=== PATIENT | male | born 1980 | race Caucasian/White ===

== ENCOUNTER 2017-02-20 10:49 | Emergency (ER) | payer OTHER ==
--- NOTE | ~2017-02-20 | ER ---
PATIENT'S NAME: REY OHARA [facility] AGE: 36 Y [address] ROOM: [place] [address] LOCATION: ED ADMIT DATE: 02/20/2017 ER/Outpatient Report DISCHARGE DATE: 02/20/2017 FAMILY PHYSICIAN: , Unknown ATTENDING PHYSICIAN: Krystal Ward Time of Arrival: 1049 hours. Time of Evaluation: 1118 hours. IDENTIFICATION: A 36-year-old male. CHIEF COMPLAINT: Medical clearance. HISTORY OF PRESENT ILLNESS: The patient is a 36-year-old male from [place], [place] who is brought in by law enforcement after suicidal statements made. They found him in his vehicle with a gun across his lap. They had to break the window to get into the vehicle. At that time, he picked up the gun and raised it. They did tase him at that time while he was seated on the left side. He did not fall. He does have some abrasions on his left forearm from the shattered glass from breaking the window. He has no other lesions. He to me when I asked him about suicidal ideation, denies this. He states "I just want to be left alone." PAST MEDICAL HISTORY: ALLERGIES: NO KNOWN DRUG ALLERGIES. CURRENT MEDICATIONS: 1. Hydrocodone/acetaminophen 5/325 one p.o. b.i.d. 2. Morphine ER 15 mg t.i.d. MEDICAL PROBLEMS: Chronic back pain status post decompressive lumbar laminectomy of L2-L3, L4-L5 and S1 with partial medial facetectomy and foraminotomy per Dr. Beebe in September of 2014. The patient had the second injury at work 1 year ago and has pain in his right SI joint. He is undergoing evaluation for that and he has been seeing Dr. Burton, Pain Specialist. PREVIOUS SURGERIES: Hemorrhoid surgery, back surgery as mentioned above and tonsillectomy. PATIENT'S NAME: REY OHARA [facility] AGE: 36 Y [address] ROOM: [place] [address] LOCATION: ED ADMIT DATE: 02/20/2017 ER/Outpatient Report DISCHARGE DATE: 02/20/2017 FAMILY PHYSICIAN: Physician, Unknown ATTENDING PHYSICIAN: Krystal Ward SOCIAL HISTORY: The patient is . Has 3 children. Lives in [place]. 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 Tobacco use, denies. Alcohol use, denies. Drug use, denies. REVIEW OF SYSTEMS: All systems reviewed and negative other than what is noted in the HPI. He states that he probably does have a history of depression. He has been treated with antidepressants in the past, but none recently. The patient's heart rate is little fast. He said that he always has some tachycardia. FAMILY HISTORY: No pertinent family history identified. PHYSICAL EXAMINATION: VITAL SIGNS: Height 6 feet 0 inches, weight 355 pounds. Blood pressure 146/90, pulse 143 initially, respiratory rate 16, temperature 98.8, and saturations 95%. Recheck heart rate came down to 118, sinus tachy. HEENT: Head: Normocephalic, atraumatic. Ears: TMs translucent both ears. Eyes: Pupils equal and reactive to light and accommodation. Extraocular movements intact. Nose: Mucosa pink. No lesions or drainage. Mouth: No lesions. Pharynx benign. NECK: Supple. No lymphadenopathy. LUNGS: Clear to auscultation. HEART: Sinus tachycardia. No murmur, rub, or gallop. ABDOMEN: Protuberant bowel sounds present. Soft, nondistended, nontender. SKIN: [place], warm, and dry. The patient has 2 taser sites on his left lower lateral rib area. EXTREMITIES: Full range of motion. No deformities. Good distal pulses. No significant lower extremity edema. The patient has decreased range of motion of his lumbar spine secondary to pain. This is not new for him. NEUROLOGIC: Neurologically, he is intact. LABORATORY DATA: Sodium 139, potassium 4.0, chloride 107, CO2 23, BUN 12, creatinine 1.1. Blood sugar 100. Liver enzymes normal. Alcohol level less than 0.010. CPK 102, CK-MB 0.7, troponin I less than 0.040. Acetaminophen less than 2. Salicylate less than 2.8. TSH 6.830. Free T4 1.2. UA positive for opiates. Hemoglobin 13.4, hematocrit 39.8, platelets 297, white count 13.5 with 82% lymphocytes. UA negative. IMAGING DATA: EKG sinus tachycardia at 126 beats per minute. No acute ST elevation or PATIENT'S NAME: REY OHARA [facility] AGE: 36 Y [address] ROOM: [place] [address] LOCATION: [facility] ADMIT DATE: 02/20/2017 ER/Outpatient Report DISCHARGE DATE: 02/20/2017 FAMILY PHYSICIAN: Physician, Unknown ATTENDING PHYSICIAN: Krystal Ward depression. No previous EKG available for comparison. IMPRESSION: 1. Depression with suicidal ideation. The patient is under [facility] hold per [facility] for transfer to [facility]. The patient is medically stable and Dr. Wesley will accept care. 2. Sinus tachycardia. 3. Elevated TSH. Free T4 was pending at the time of discharge, but has returned to normal. 4. Chronic back pain on chronic opiate use. The patient was taken by law enforcement in stable condition to [facility]. KRYSTAL WARD MD CAR/modl /[id number] d: 02/21/1732 t: 02/22/172042, OUTPATIENT REPORT
[~2017-02-20 10:49] MED LIST: CIPRO500 MG PO; COLACE100 MG PO; DULCOLAX5 MG PO; FLEXERIL10 MG PO; HYDROCODON-ACE1 EAC4 PO; MIRALAX17 GM PO; MOBIC7.5 MG
[2017-02-20 11:21] LABS: BILIRUBIN URINE NEGATIVE (NEGATIVE); BLOOD URINE NEGATIVE /UL (NEGATIVE); COLOR URINE YELLOW (YELLOW); GLUCOSE URINE NEGATIVE (NEGATIVE); KETONE URINE NEGATIVE (NEGATIVE); LEUKOCYTES URINE NEGATIVE /UL (NEGATIVE); NITRITE URINE NEGATIVE (NEGATIVE); PROTEIN URINE NEGATIVE (NEGATIVE); TURBIDITY URINE CLEAR (CLEAR); UROBILINOGEN URINE NORMAL (NORMAL)
[2017-02-20 11:39] LABS: AMPHETAMINE NEGATIVE (NEGATIVE); BARBITURATE NEGATIVE (NEGATIVE); COCAINE NEGATIVE (NEGATIVE); OPIATES POSITIVE (NEGATIVE)
[2017-02-20 11:43] LABS: BASOPHIL % 0.2 %; EOSINOPHIL % 0.1 %; HEMATOCRIT 39.8 % (37.0-53.0); HEMOGLOBIN 13.4 g/dL (12.0-17.0); IMMATURE GRANULOCYTE # 0.1 K/uL (0.0-0.3); IMMATURE GRANULOCYTE % 0.4 %; LYMPHOCYTE # 1.2 K/uL (0.8-4.0); MCH 29.2 pg (27.0-34.0); MCHC 33.7 gm/dL (32.0-36.5); MCV 86.7 fl (83.0-98.0); MONOCYTE # 1.1 K/uL (0.0-1.0); NEUTROPHIL # (ANC) 11.1 K/uL (1.4-9.0); NEUTROPHIL % 82.3 %; NRBC % 0 /100WBC (0-0.00); PLATELET COUNT 297 K/uL (150-450); RBC 4.59 M/uL (4.00-6.00); RDW-CV 13.3 % (11.9-14.6); WBC 13.5 K/uL (4.0-11.0)
[2017-02-20 12:03] LABS: ALBUMIN 3.7 gm/dL (3.5-5.0); ALK PHOS 89 IU/L (33-138); ALT 59 IU/L (12-78); AST 21 IU/L (10-40); BLOOD UREA NITROGEN 12 mg/dL (6-24); CHLORIDE 107 mMol/L (96-110); CO2 23 mMol/L (22-32); CPK 102 IU/L (35-332); CREATININE 1.1 mg/dL (0.6-1.3); SODIUM 139 mMol/L (135-145); TOTAL BILIRUBIN 0.3 mg/dL (0.0-1.5)
[2017-02-20] MEDS ORDERED: MS CONTIN15 MG PO (15:09)
[2017-02-26] MEDS ORDERED: CYMBALTA60 MG PO (10:49)
== END 2017-02-20 12:41 | disposition disaster alternative care site (69) ==
LOC: GMED 10:49
PROVIDERS: Family Medicine
DX: F32.9 Major depressive disorder, single episode, unspecified (principal); R45.851 Suicidal ideations; R00.0 Tachycardia, unspecified; R94.6 Abnormal results of thyroid function studies; M54.9 Dorsalgia, unspecified; G89.28 Other chronic postprocedural pain; Z79.891 Long term (current) use of opiate analgesic
CPT/HCPCS: G0480